=== PATIENT | female | born 1935 | race Hispanic/Latino ===

== ENCOUNTER 2017-12-09 20:01 | Emergency (ER) | payer MEDICARE ==
[2017-12-09] MEDS ORDERED: LIDOCAIN/EPI 1-0.001% 10ML INJ SOL IJ ONE (20:19)
[2017-12-09 20:20] VITALS: RESP 18; TEMP 97.9; BMI 28.8
--- NOTE | 2017-12-09 20:28 | ED PDOC ---
Arrival/HPI - General Historian: Patient - General Chief Complaint: Abnormal Skin Integrity Time Seen by Provider: 12/09/17 20:10 - History of Present Illness Narrative History of Present Illness (Text): 12/09/17 20:21 82 y/o female, pmh including heart disease/htn/demantia, nkda, last tetanus doesn't remember, bib son c/o rt. upper lip and facial pain s/p fall from the bed about 1 hour ago. Pt. fall from the bed, bite cut through the rt. upper lip from the denture?, no LOC, able to recall the whole event, no fever or chills, eating and drinking well, no change in behavior or mental status, no other medical or [id number] complaints. (José Manuel Murray) Past Medical History - Provider Review Nursing Documentation Reviewed: Yes - Infectious Disease Hx of Infectious Diseases: None - Cardiac Hx Cardiac Disorders: Yes Hx Hypertension: Yes - Pulmonary Hx Respiratory Disorders: No - Neurological Hx Neurological Disorder: Yes Hx Dementia: Yes - HEENT Hx HEENT Disorder: No - Renal Hx Renal Disorder: No - Endocrine/Metabolic Hx Endocrine Disorders: No - Hematological/Oncological Hx Blood Disorders: No - Integumentary Hx Dermatological Disorder: No - Musculoskeletal/Rheumatological Hx Musculoskeletal Disorders: No - Gastrointestinal Hx Gastrointestinal Disorders: No - Genitourinary/Gynecological Hx Genitourinary Disorders: No - Psychiatric Hx Psychophysiologic Disorder: No Hx Substance Use: No Family/Social History - Physician Review Nursing Documentation Reviewed: Yes Family/Social History: Unknown Family HX Smoking Status: Never Smoked Hx Alcohol Use: No Hx Substance Use: No Allergies/Home Meds Allergies/Adverse Reactions: Allergies No Known Allergies Allergy (Verified 12/09/17 20:05) Home Medications: Home Meds Medication Instructions Recorded Confirmed Unobtainable 12/09/17 12/09/17 Review of Systems - Review of Systems Systems not reviewed;Unavailable: Dementia Constitutional: absent: Fatigue, Fevers Eyes: absent: Vision Changes ENT: absent: Hearing Changes Respiratory: absent: SOB Cardiovascular: absent: Chest Pain Gastrointestinal: absent: Abdominal Pain, Diarrhea, Nausea, Vomiting Skin: Laceration. absent: Rash, Pruritis, Abscess, Ulcer, Cellulitis Neurological: absent: Headache, Dizziness, Focal Weakness Psychiatric: absent: Anxiety, Depression, Suicidal Ideation Physical Exam Vital Signs Reviewed: Yes Temperature: Afebrile Blood Pressure: Normal Pulse: Regular Respiratory Rate: Normal Appearance: Positive for: Well-Appearing, Non-Toxic, Comfortable Pain Distress: Mild Mental Status: Positive for: Alert and Oriented X 3 - Systems Exam Head: Present: Atraumatic, Normocephalic, Other (Facial: +ttp on the rt. facial cheek region with mild swelling, no ecchymosis. ). No: Tenderness, Contusion, Swelling, Ecchymosis, Abrasion, Laceration Pupils: Present: PERRL Extroacular Muscles: Present: EOMI Conjunctiva: Present: Normal Ears: Present: NORMAL TM, Normal Canal. No: Erythema Mouth: Present: Moist Mucous Membranes. No: Normal Lips (Rt. upper lip visible approx. 3cm through and through laceration from external to internal crossing the vermilion border, no visible foreign bodies. ) Pharnyx: No: ERYTHEMA, EXUDATE, TONSILS ENLARGED, Uvular Deviation, Muffled/ Hoarse Voice Nose (External): Present: Atraumatic. No: Abrasion, Contusion, Laceration Nose (Internal): Present: Normal Inspection, No Active Bleeding. No: Rhinorrhea , Septal Hematoma, Epistaxis Neck: Present: Normal Range of Motion Respiratory/Chest: Present: Clear to Auscultation, Good Air Exchange. No: Respiratory Distress, Accessory Muscle Use Cardiovascular: Present: Regular Rate and Rhythm, Normal S1, S2. No: Murmurs Abdomen: No: Tenderness, Distention, Peritoneal Signs Back: Present: Normal Inspection. No: Midline Tenderness, Paraspinal Tenderness Upper Extremity: Present: Normal Inspection. No: Cyanosis, Edema Lower Extremity: Present: Normal Inspection, Neurovascularly Intact. No: Edema , Tenderness, Swelling Neurological: Present: Other (demantia, limited neurological exam, no focal deficits, no drifts. ) Skin: Present: Warm, Dry, Normal Color. No: Rashes Psychiatric: Present: Alert, Other (demantia) Vital Signs Temp Pulse Resp BP Pulse Ox 12/10/17 02:46 98 12/10/17 01:47 90 18 109/80 98 12/09/17 20:01 97.9 F 88 18 106/63 99 Medical Decision Making ED Course and Treatment: 12/10/17 00:[address] Wilks, present in ER, who will perform laceration repair. 12/10/17 01:10 Laceration repair performed by Dr. Wilks. (Nickolas Marina) 12/09/17 20:33 Differential: ICH vs. facial fracture vs. lip laceration -CT head/facial -Tdap -Ativan 2mg IM ordered as the patient/family stated that she is claustrophobic -I spoke to the plastic surgeon Dr. Kobe Wilks, discussed about the case and description of the lip laceration, stated that he is in a case now and would be here before 12am to manage the laceration -I discussed all plans and discussion with the family and patient, they awared of the plan of care and would wait for the plastic surgeon Dr. Wilks 12/09/17 20:58 -I discussed the case and plan of care/plastic surgeon care with Dr. Marina, he agreed on the plan of care. He will follow up on the plan of care including pending CT studies. (José Manuel Murray) - Medication Orders Current Medication Orders: Discontinued Medications Haloperidol Lactate (Haldol) 1 mg IM STAT STA PRN Reason: Protocol Stop: 12/10/17 00:43 Last Admin: 12/10/17 00:49 Dose: 1 mg IM Administration Charges Document 12/10/17 00:49 SS (Rec: 12/10/17 02:38 SS [id number]) Injection Site MAR Injection Site Right Deltoid Charges for Administration # of IM Administrations 1 Haloperidol Lactate (Haldol) 4 mg IM STAT STA PRN Reason: Protocol Stop: 12/10/17 01:58 Last Admin: 12/10/17 01:15 Dose: 4 mg IM Administration Charges Document 12/10/17 01:15 SS (Rec: 12/10/17 02:39 SS [id number]) Injection Site MAR Injection Site Left Deltoid Charges for Administration # of IM Administrations 1 Lorazepam (Ativan) 2 mg IM ONCE ONE PRN Reason: Protocol Stop: 12/09/17 20:34 Last Admin: 12/09/17 20:47 Dose: 2 mg IM Administration Charges Document 12/09/17 20:47 SS (Rec: 12/09/17 20:47 SS [id number]) Injection Site MAR Injection Site Left Deltoid Charges for Administration # of IM Administrations 1 Lorazepam (Ativan) 1 mg IM ONCE ONE PRN Reason: Protocol Stop: 12/10/17 00:50 Last Admin: 12/10/17 00:49 Dose: 1 mg IM Administration Charges Document 12/10/17 00:49 SS (Rec: 12/10/17 02:38 SS [id number]) Injection Site MAR Injection Site Right Deltoid Charges for Administration # of IM Administrations 1 Lorazepam (Ativan) 1 mg IM ONCE ONE PRN Reason: Protocol Stop: 12/10/17 01:59 Last Admin: 12/10/17 01:10 Dose: 1 mg IM Administration Charges Document 12/10/17 01:10 SS (Rec: 12/10/17 02:39 SS [id number]) Injection Site MAR Injection Site Left Deltoid Charges for Administration # of IM Administrations 1 Tetanus/Reduced Diphtheria/Acell Pertussis (Boostrix Vaccine Inj) 0.5 ml IM .ONCE ONE Stop: 12/09/17 20:34 Last Admin: 12/09/17 20:46 Dose: 0.5 ml Immunization Registry Document 12/09/17 20:46 SS (Rec: 12/09/17 20:46 SS [id number]) Immunization Registry Consent Date 12/09/17 - PA / QUALITY ASSURANCE ASSOCIATE / Resident Statement MD/DO has reviewed & agrees with the documentation as recorded. MD/DO has examined the patient and agrees with the treatment plan. Disposition/Present on Arrival - Present on Arrival Any Indicators Present on Arrival: No History of DVT/PE: No History of Uncontrolled Diabetes: No Urinary Catheter: No History of Decub. Ulcer: No History Surgical Site Infection Following: None - Disposition Have Diagnosis and Disposition been Completed?: Yes Disposition Time: 20:58 - Disposition Diagnosis: Lip laceration, Fall, Facial injury Disposition: HOME/ ROUTINE Condition: GOOD Discharge Instructions (ExitCare): Laceration Repair, Head Injury Observation ( DC) Forms: [employer] ([employer])
[2017-12-09] MEDS ORDERED: TDAP Vaccine 0.5 mL Syr IM ONE (20:33)
[2017-12-10 02:46] VITALS: BP 109/80; PULSE 90; O2SAT 98
== END 2017-12-10 02:46 | disposition home or self-care (01) ==
LOC: ED 20:01
DX: S01.511A Laceration without foreign body of lip, initial encounter (principal); W06.XXXA Fall from bed, initial encounter; Y92.003 Bedroom of unspecified non-institutional (private) residence as the place of occurrence of the external cause; Z23 Encounter for immunization
CPT/HCPCS: 12013; 90471; 90715; 96372; 99283; J1630; J2060

== ENCOUNTER 2018-01-19 09:04 | Observation (INO) | payer MEDICARE ==
--- NOTE | 2018-01-19 09:23 | ED PDOC ---
Arrival/HPI - General Chief Complaint: Weakness/Neurological Deficit Time Seen by Provider: 01/19/18 09:10 Historian: Patient - History of Present Illness Narrative History of Present Illness (Text): 01/19/18 09:23 This 82 yo female with pmh heart disease/htn/demantia, nkda, BIB BLS for hypotension. Patient 's daughter at bedside providing history. Daughter stated patient was on her normal stated of health, when patient nurse came to see her this monring, and found patient blood pressure to be low. Patient has dementia. Patient denies symptoms. Time/Duration: Other (see hpi) Context: Home Past Medical History - Provider Review Nursing Documentation Reviewed: Yes - Infectious Disease Hx of Infectious Diseases: None - Cardiac Hx Cardiac Disorders: Yes Hx Hypertension: Yes - Pulmonary Hx Respiratory Disorders: No - Neurological Hx Neurological Disorder: Yes Hx Dementia: Yes - HEENT Hx HEENT Disorder: No - Renal Hx Renal Disorder: No - Endocrine/Metabolic Hx Endocrine Disorders: No - Hematological/Oncological Hx Blood Disorders: No - Integumentary Hx Dermatological Disorder: No - Musculoskeletal/Rheumatological Hx Musculoskeletal Disorders: No - Gastrointestinal Hx Gastrointestinal Disorders: No - Genitourinary/Gynecological Hx Genitourinary Disorders: No - Psychiatric Hx Psychophysiologic Disorder: No Hx Substance Use: No - Anesthesia Hx Anesthesia: No Hx Anesthesia Reactions: No Hx Malignant Hyperthermia: No Family/Social History - Physician Review Nursing Documentation Reviewed: Yes Family/Social History: Other (noncontributory) Smoking Status: Never Smoked Hx Alcohol Use: No Hx Substance Use: No Allergies/Home Meds Allergies/Adverse Reactions: Allergies No Known Allergies Allergy (Verified 12/09/17 20:05) Home Medications: Home Meds Medication Instructions Recorded Confirmed Unobtainable 12/09/17 12/09/17 Review of Systems - Review of Systems Systems not reviewed;Unavailable: Other (information taken from daughter) Constitutional: Normal. absent: Fatigue, Weight Change, Fevers, Night Sweats Eyes: Normal ENT: Normal Respiratory: Normal Cardiovascular: Other (hypotension) Gastrointestinal: Normal Genitourinary Female: Normal Musculoskeletal: Normal Skin: Normal Neurological: Normal Endocrine: Normal Hemo/Lymphatic: Normal Psychiatric: Normal Physical Exam Vital Signs Temp Pulse Resp BP Pulse Ox 01/19/18 11:18 69 16 90/53 L 97 01/19/18 10:48 70 18 99/56 L 98 01/19/18 10:38 98.2 F 01/19/18 10:10 70 18 97/56 L 98 01/19/18 09:34 100 01/19/18 09:24 80 18 143/46 L Temperature: Afebrile Blood Pressure: Normal Pulse: Regular Respiratory Rate: Normal Appearance: Positive for: Well-Appearing, Non-Toxic, Comfortable Pain Distress: None - Systems Exam Head: Present: Atraumatic, Normocephalic Pupils: Present: PERRL Extroacular Muscles: Present: EOMI Conjunctiva: Present: Normal Mouth: Present: Moist Mucous Membranes Neck: Present: Normal Range of Motion Respiratory/Chest: Present: Clear to Auscultation, Good Air Exchange. No: Respiratory Distress, Accessory Muscle Use, Wheezes, Retracting, Rhonchi, Tachypneic Cardiovascular: Present: Regular Rate and Rhythm, Normal S1, S2. No: Murmurs Abdomen: No: Tenderness, Distention, Peritoneal Signs Back: Present: Normal Inspection. No: CVA Tenderness Upper Extremity: Present: Normal Inspection, Normal ROM. No: Cyanosis, Edema Lower Extremity: Present: Normal Inspection, Normal ROM. No: Edema Neurological: Present: GCS=15, CN II-XII Intact, Speech Normal Skin: Present: Warm, Dry, Normal Color. No: Rashes Psychiatric: Present: Alert Medical Decision Making ED Course and Treatment: 01/19/18 12:[address] Sharma regarding patient history of hypotension. He recommended observation, and Dr. Doe as consult. I spoke with patient daughter who agrees with plan for observation. She staetd patient has seen Boris Middleton in the past, "long time ago", and she prefers Dr. Doe instead. Re-evaluation Time: 12:05 Reassessment Condition: Re-examined, Improving,but remains with symptoms - Lab Interpretations Lab Results: 01/19/18 09:35 01/19/18 09:35 Lab Results 01/19/18 10:30: Urine Color Light yellow, Urine Appearance Clear, Urine pH 6.5, Ur Specific [place] 1.010, Urine Protein Negative, Urine Glucose (UA) Negative, Urine Ketones Negative, Urine Blood Negative, Urine Nitrate Negative, Urine Bilirubin Negative, Urine Urobilinogen 0.2, Ur Leukocyte Esterase Negative 01/19/18 09:35: Sodium 138, Potassium 4.6, Chloride 103, Carbon Dioxide 25, Anion Gap 14, BUN 41 H, Creatinine 2.2 H, Est GFR ( Amer) 26, Est GFR ( Non-Af Amer) 21, Random Glucose 106, Calcium 8.2 L, Phosphorus 4.3, Magnesium 2.4 H, Total Bilirubin 0.3, AST 25, ALT 12, Alkaline Phosphatase 44, Troponin I < 0.01, NT-Pro-B Natriuret Pep 623 H, Total Protein 6.1, Albumin 3.1, Globulin 3.0, Albumin/Globulin Ratio 1.0 L 01/19/18 09:35: PT 12.5, INR 1.09, APTT 34.3 01/19/18 09:35: WBC 4.4 L, RBC 3.60, Hgb 10.9 L, Hct 33.4 L, MCV 92.8, MCH 30.3 , MCHC 32.6, RDW 13.2, Plt Count 292, MPV 8.4, Gran % 59.0, Lymph % (Auto) 20.3 L, [place] % (Auto) 12.8 H, Eos % (Auto) 7.2 H, Baso % (Auto) 0.7, Gran # 2.62, Lymph # (Auto) 0.9 L, [place] # (Auto) 0.6, Eos # (Auto) 0.3, Baso # (Auto) 0.03 - RAD Interpretation Narrative RAD Interpretations (Text): 01/19/18 11:39 Chest X-rays: NAD Radiology Orders: 01/19/18 09:23 CHEST PORTABLE [RAD] Stat - EKG Interpretation Interpreted by ED Physician: Yes (NSR @ 68 bpm. Low voltage QRS. No ST changes) Type: 12 lead EKG Comparison: No previous EKG avail. - Medication Orders Current Medication Orders: Alprazolam (Xanax) 0.25 mg PO TID PRN; Protocol PRN Reason: Anxiety Donepezil HCl (Aricept) 10 mg PO HS SANDY Famotidine (Pepcid) 40 mg PO DAILY SANDY Sodium Chloride (Sodium Chloride 0.45%) 1,000 mls @ 60 mls/hr IV .[id number] SANDY Levothyroxine Sodium (Synthroid) 150 mcg PO 0600 SANDY Memantine (Namenda) 5 mg PO DAILY SANDY Trazodone HCl (Desyrel) 50 mg PO HS SANDY Discontinued Medications Sodium Chloride (Sodium Chloride 0.9%) 500 mls @ 999 mls/hr IV .Q31M STA Stop: 01/19/18 09:56 Last Admin: 01/19/18 09:48 Dose: 999 mls/hr eMAR Start Stop Document 01/19/18 09:48 SF (Rec: 01/19/18 09:48 SF [facility] [id number]) Intravenous Solution Start Date 01/19/18 Start Time 09:48 End Date 01/19/18 End time 10:20 Total Infusion Time 32 Lorazepam (Ativan) 1 mg IVP ONCE ONE PRN Reason: Protocol Stop: 01/19/18 10:06 Last Admin: 01/19/18 10:14 Dose: 1 mg IVP Administration Document 01/19/18 10:14 SF (Rec: 01/19/18 10:14 SF [facility] [id number]) Charges for Administration # of IVP Administrations 1 Disposition/Present on Arrival - Present on Arrival Any Indicators Present on Arrival: No History of DVT/PE: No History of Uncontrolled Diabetes: No Urinary Catheter: No History of Decub. Ulcer: No History Surgical Site Infection Following: None - Disposition Have Diagnosis and Disposition been Completed?: Yes Diagnosis: Hypotension, CKD (chronic kidney disease), Dementia Disposition: HOSPITALIZED Disposition Time: 12:05 Patient Plan: Observation Condition: STABLE Discharge Instructions (ExitCare): Low Blood Pressure (DC) Referrals: Sawyer Sharma DO [Primary Care Provider] - Follow up with primary Forms: [employer] ([place]ish)
[2018-01-19] MEDS ORDERED: Sodium Chloride 0.9% 500 ML IV STA (09:26)
[2018-01-19 09:59] LABS: BASO # 0.03 K/mm3 (0.0-2.0); BASO % 0.7 % (0.0-3.0); EOS # 0.3 (0.0-0.7); EOS % 7.2 % (1.5-5.0); GRAN # 2.62 (1.4-6.5); HEMOGLOBIN 10.9 g/dL (12.0-16.0); LYMPH # 0.9 (1.2-3.4); LYMPH % 20.3 % (22.0-35.0); MEAN CELL VOLUME 92.8 fl (80.0-105.0); MEAN CORPUSCULAR HEMOGLOBIN 30.3 pg (25.0-35.0); MEAN CORPUSCULAR HGB CONC 32.6 g/dl (31.0-37.0); MEAN PLATELET VOLUME 8.4 fl (7.0-11.0); MONO # 0.6 (0.1-0.6); MONO % 12.8 % (1.0-6.0); RBC 3.6 10^6/uL (3.5-6.1); RED CELL DISTRIBUTION WIDTH 13.2 % (11.5-14.5); WHITE BLOOD COUNT 4.4 10^3/ul (4.5-11.0)
[2018-01-19 10:09] LABS: ALBUMIN 3.1 g/dL (3.0-4.8); ALT/SGPT 12 U/L (7-56); AST/SGOT 25 U/L (14-36); BLOOD UREA NITROGEN 41 mg/dL (7-21); CALCIUM 8.2 mg/dL (8.4-10.5); GFR AFRICAN-AMERICAN 26; GFR NON-AFRICAN AMERICAN 21; INR 1.09; PARTIAL THROMBOPLASTIN TIME 34.3 Seconds (25.1-36.5); PROTHROMBIN TIME 12.5 SECONDS (9.4-12.5)
[2018-01-19 10:21] LABS: B-TYPE NATRIURETIC PEPTIDE 623 pg/mL (0-450); TROPONIN I < 0.01 ng/mL
--- NOTE | 2018-01-19 10:30 | RAD ---
Date of service: 01/19/2018 HISTORY: hypotension COMPARISON: No prior. FINDINGS: LUNGS: No active pulmonary disease. PLEURA: No significant pleural effusion identified, no pneumothorax apparent. CARDIOVASCULAR: Normal. OSSEOUS STRUCTURES: No significant abnormalities. VISUALIZED UPPER ABDOMEN: Normal. OTHER FINDINGS: None. IMPRESSION: No active disease.
[2018-01-19 10:55] LABS: PH,URINE 6.5 (4.7-8.0); URINE BILIRUBIN NEGATIVE (NEGATIVE); URINE BLOOD NEGATIVE (NEGATIVE); URINE GLUCOSE (UA) NEGATIVE (NEGATIVE); URINE LEUKOCYTE ESTERASE NEGATIVE Leu/uL (NEGATIVE); URINE PROTEIN NEGATIVE mg/dL (<30 mg/dL); URINE UROBILINOGEN 0.2 E.U./dL (<1 E.U./dL)
[2018-01-19 10:58] LABS: URINE APPEARANCE CLEAR (CLEAR); URINE COLOR LIGHT YELLOW (YELLOW)
--- NOTE | 2018-01-19 11:58 | CARD ---
APPROVED REPORT Date of service: 01/19/2018 EKG Measurement Heart [id number] <Conclusion> Normal sinus rhythm Low voltage QRS Borderline ECG
[2018-01-19] MEDS: Sodium Chloride 0.45% 1,000 ML IV SCH (12:12)
[2018-01-19 18:29] VITALS: BMI 28.3
[2018-01-19] MEDS ORDERED: Pneumococcal 23-Valent Vaccine IM ONE (18:29)
[2018-01-19 23:16] VITALS: RESP 20
[2018-01-20] MEDS: Sodium Chloride 0.45% 1,000 ML IV SCH (04:35)
[2018-01-20] MEDS ORDERED: Levothyroxine 150 MCG TAB PO SCH (06:00)
[2018-01-20 06:18] LABS: HEMOGLOBIN 11.6 g/dL (12.0-16.0); MEAN CELL VOLUME 91.8 fl (80.0-105.0); MEAN CORPUSCULAR HEMOGLOBIN 30.5 pg (25.0-35.0); MEAN CORPUSCULAR HGB CONC 33.2 g/dl (31.0-37.0); MEAN PLATELET VOLUME 8.2 fl (7.0-11.0); RBC 3.8 10^6/uL (3.5-6.1)
[2018-01-20 06:35] LABS: ALBUMIN 3.3 g/dL (3.0-4.8); CALCIUM 8.9 mg/dL (8.4-10.5)
[2018-01-20 07:04] VITALS: BP 121/69; PULSE 84; TEMP 98; O2SAT 99
[2018-01-20] MEDS ORDERED: Levothyroxine 125 MCG TAB PO SCH (08:20)
--- NOTE | 2018-01-20 14:16 | CON ---
Copied To: Cristian Doe MD Attending MD: Cristian Doe MD DATE: 01/20/2018 Cardiology consultation HISTORY: The patient is an 82-year-old woman, who presented with transient hypotension. The patient has a history of dementia. No previous cardiac history is noted. Her medications at home include Synthroid for her hypothyroidism. She denies chest pain, denies shortness of breath. SOCIAL HISTORY: The patient lives at home. REVIEW OF SYSTEMS: Fourteen-point review of systems is reviewed in detail. The patient is mildly confused with decreased hearing, but no cardiac symptoms can be elicited. PHYSICAL EXAMINATION: VITAL SIGNS: Blood pressure is 121/70, heart rate is in the 80s. NECK: Negative JVD. LUNGS: Without rales. HEART: Reveals S1, S2 without murmurs or gallops. EXTREMITIES: Without edema. LABORATORY DATA: Laboratories include an EKG that shows normal sinus rhythm with no acute changes. Troponin is negative x1. BUN and creatinine are much improved with IV fluids. Hemoglobin is 11.6. IMPRESSION: 1. Transient hypotension, which is likely dehydration. 2. Anemia, which is stable. 3. Renal insufficiency. 4. No evidence for aortic stenosis. 5. Hypothyroidism. PLAN: Given these findings, the patient is feeling well. Her blood pressure is better controlled after IV fluids. The patient scheduled for discharge today. No further testing is necessary at this time. Cristian Doe MD
--- NOTE | 2018-01-21 02:39 | DS ---
Copied To: Sawyer Sharma DO Attending MD: Sawyer Sharma DO HISTORY OF PRESENT ILLNESS: She is looking very well this morning. She is alert and confused, at her baseline. She is pleasant, not screaming or yelling. PHYSICAL EXAMINATION: VITAL SIGNS: She has a 98 temp, 84 pulse, 121/69 blood pressure, 20 respiratory rate, 99% O2 sat on room air. This is perfect for her. HEENT: Head is atraumatic and normocephalic. She is alert and confused and smiling and laughing. HEART: Regular rate. LUNGS: Decreased breath sounds, but clear. ABDOMEN: Soft, nontender. Positive bowel sounds. EXTREMITIES: No edema. She is bedridden and she is at baseline. MEDICATIONS: She will go home on Aricept, Desyrel, Namenda, Pepcid, Synthroid we are going to drop at 125 from 150 and Xanax. LABORATORY DATA: She has a 6 white count, 11.6 hemoglobin, 34.9 hematocrit with 283 platelets, better. She has a 141 sodium, potassium 4.3, BUN is 28, creatinine is 1.5, much better. GFR is 33, sugar is 89, calcium is 8.9, total bili is 0.3. AST is 25, ALT is 18, alkaline phosphatase 55, troponin I is less than 0.01. Total protein is 6.6, albumin 3.3, but the TSH was low at 0.12. I decreased her Synthroid from 150 to 125. She will be discharged to follow up on outpatient for house calls. We will adjust the Synthroid on outpatient. Geriphilip Pierce, who had dehydration, low blood pressure. Sawyer Sharma DO
== END 2018-01-20 14:30 | disposition home or self-care (01) ==
LOC: ED 09:04 → ERH 11:58 → 3RSO 16:48
PROVIDERS: ADMIT Family Medicine; ATTEND Family Medicine
DX: I95.9 Hypotension, unspecified (principal); E86.0 Dehydration; I13.0 Hypertensive heart and chronic kidney disease with heart failure and stage 1 through stage 4 chronic kidney disease, or unspecified chronic kidney disease; D64.9 Anemia, unspecified; E03.9 Hypothyroidism, unspecified; E78.00 Pure hypercholesterolemia, unspecified; F03.90 Unspecified dementia, unspecified severity, without behavioral disturbance, psychotic disturbance, mood disturbance, and anxiety; I50.9 Heart failure, unspecified; N18.9 Chronic kidney disease, unspecified
CPT/HCPCS: 36415; 71045; 80053; 81003; 82948; 83735; 83880; 84100; 84145; 84443; 84484; 85025; 85027; 85610; 85730; 87040; 87086; 93005; 96361; 96374; 96376; 99285; G0378; J2060; J7030; J7040